=== PATIENT | male | born 1980 | race Caucasian/White ===

== ENCOUNTER 2019-04-23 11:16 | Emergency (ER) | payer BC ==
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
--- NOTE | 2019-04-23 12:09 | CR ---
INDICATION: Left-sided rib pain following fall 4 days prior TECHNIQUE: Chest and left ribs 2 views. COMPARISON: None FINDINGS: Cardiovascular and mediastinum: Heart size and vasculature are normal in caliber and appearance. Mediastinum is within normal limits. Lungs and pleural spaces: Lungs are clear. No sign of infiltrate or mass. No sign of pleural effusion. No pneumothorax. Bones and soft tissues: Detailed oblique images of the left ribs demonstrate no fractures or bone lesions. IMPRESSION: Unremarkable chest and left ribs. Dictated by Solitario Dai MD @ 04/23/2019 12:07:11 PM Dictated by: Solitario Dai MD @ 04/23/2019 12:07:18 (Electronically Signed)
--- NOTE | 2019-04-23 12:09 | CR ---
INDICATION: Pt fell x 4 nights ago, c/o lt hand pain. INDICATION: Pain following fall 4 days prior TECHNIQUE: Three views left hand COMPARISON: None FINDINGS: Bones: Comminuted fracture mid and distal shaft of the 5th metacarpal bone. Joint spaces: Unremarkable. Soft tissues: Unremarkable. IMPRESSION: Comminuted fracture mid and distal shaft of the 5th metacarpal bone. Dictated by Solitario Dai MD @ 04/23/2019 12:08:10 PM Dictated by: Solitario Dai MD @ 04/23/2019 12:08:18 (Electronically Signed)
== END 2019-04-23 12:50 | disposition home or self-care (01) ==
LOC: MW.ED 11:16
DX: S62.327A Displaced fracture of shaft of fifth metacarpal bone, left hand, initial encounter for closed fracture (principal); S29.9XXA Unspecified injury of thorax, initial encounter; S00.81XA Abrasion of other part of head, initial encounter; S60.512A Abrasion of left hand, initial encounter; S60.511A Abrasion of right hand, initial encounter; E11.9 Type 2 diabetes mellitus without complications; Z79.84 Long term (current) use of oral hypoglycemic drugs; Z79.899 Other long term (current) drug therapy; Y08.89XA Assault by other specified means, initial encounter
CPT/HCPCS: 29125; 71101-26-LT; 71101-LT; 73130-26-LT; 73130-LT; 99283; 99283-25